=== PATIENT | female | born 1970 | race African-American/Black ===

== ENCOUNTER 2018-04-13 10:20 | Emergency (ER) | payer SELFPAY ==
[~2018-04-13] VITALS: Ht 180.3 cm; Wt 115.2 kg
[2018-04-13 10:40] VITALS: BP 115/84
[2018-04-13] MEDS ORDERED: PENI500T PO (10:43)
--- NOTE | 2018-04-13 17:15 | ED.ADGEN ---
Past History Past Medical History: No Pertinent History Past Surgical History: No Surgical History Alcohol Use: Heavy Drug Use: None Adult General Chief Complaint Chief Complaint Right posterior lower dental pain HPI HPI Patient is a 47-year-old Afro-[place] female presents with right posterior lower molar pain. Reports pain for the past 2-3 days and Reactive CONSUMPTION secondary to pain. Patient has not contacted a dentist or been evaluated locally for her current complaint. No trismus, hoarseness, dysphonia or dysphagia. No chest pain shortness of breath. No facial swelling. No other acute symptoms or complaints. [] Review of Systems Review of Systems Review symptoms as per history of present illness. All other systems were reviewed and found to be within normal limits, except as documented in this note. Allergies Allergies Allergies Coded Allergies Type Severity Reaction Last Updated Verified No Known Drug Allergies 04/13/18 No Physical Exam Physical Exam Constitutional: Well developed, well nourished, no acute distress, non-toxic appearance. [] HENT: Normocephalic, atraumatic, bilateral external ears normal, oropharynx moist, right lower posterior mandible tooth erosion, no gingival or facial swelling. No dysphonia, dysphagia. [] Eyes: PERRLA, EOMI, conjunctiva normal. [] Psychologic: Affect normal, judgement normal, mood normal. [] Current Patient Data Vital Signs Vital Signs Date Time Temp Pulse Resp B/P (MAP) Pulse Ox O2 Delivery O2 Flow Rate FiO2 04/13/18 10:40 98.1 100 20 96 Room Air EKG EKG [] Radiology/Procedures Radiology/Procedures [] Course & Med Decision Making Course & Med Decision Making Pertinent Labs and Imaging studies reviewed. (See chart for details) [ declined pain medication offered here in the emergency department. She left prior to receiving her antibiotic prescription and dental referral list. Suspect drug-seeking behavior.] Final Impression Final Impression [#1 dental pain #2 drug seeking behavior] Dragon Disclaimer Dragon Disclaimer This electronic medical record was generated, in whole or in part, using a voice recognition dictation system. FABIAN SELBY DO Apr 13, 2018 17:15
== END 2018-04-13 11:04 | disposition home or self-care (01) ==
LOC: ER 10:20
DX: K08.89 Other specified disorders of teeth and supporting structures (principal); Z76.5 Malingerer [conscious simulation]; F10.20 Alcohol dependence, uncomplicated; Y90.9 Presence of alcohol in blood, level not specified
CPT/HCPCS: 99283

== ENCOUNTER 2018-07-26 02:13 | Emergency (ER) | payer SELFPAY ==
[~2018-07-26] VITALS: Ht 180.3 cm; Wt 104.3 kg
[~2018-07-26 02:13] MED LIST: PENI500T PO
--- NOTE | 2018-07-26 02:20 | ED.ADGEN ---
Past History Past Medical History: No Pertinent History, Alcoholism, Constipation, Ovarian Cyst, Other Past Surgical History: No Surgical History Alcohol Use: Heavy Drug Use: None Adult General Chief Complaint Chief Complaint ".. I was out [employer].. in [place] about 2 weeks ago they did a bone cyst on October I get a CT and they said I had an ovarian cyst or mass... They sent me to follow up at [facility] here in [place]...but they want $150 dollars... I went to ED.. and they did not know what they are doing...I am really from [facility]...and pablo have moved up here....but pain to bad tonight...and was not going to go back to that [facility] place..."... " I know what the problem is ... it the ovaries.. cysts... I ve had it for years..." HPI HPI Patient is a 47 year old female who presents with above hx and complaints of right flank and lower abdomen pain. Patient's pain is been there for months, and previous diagnosis of ovarian cysts or mass 2 weeks ago and sat [facility]. Patient did eat a large meal approximate 4 hours ago. Patient does admit to chronic alcohol use. Patient did have a normal stool today. Patient pain is currently 8 out of 10 and nothing seems to make it better. Patient denies any history of immunosuppression. Patient denies any history of specific ill contacts. Patient denies history of STDs. Patient with history of somewhat limited. Patient does admit to drinking alcohol tonight. Patient denies any drug use other than alcohol. Patient advised she still has periods. Patient does not remember her last period. Patient denies any vaginal discharge. Patient denies history of STDs. Patient denies any trauma. Review of Systems Review of Systems Constitutional: Denies fever or chills [] Eyes: Denies change in visual acuity, redness, or eye pain [] HENT: Denies nasal congestion or sore throat [] Respiratory: Denies cough or shortness of breath [] Cardiovascular: No additional information not addressed in HPI [] GI: Complaints of months of abdominal pain and constipation, No current, nausea, vomiting, bloody stools or diarrhea [] : Denies dysuria or hematuria [] Musculoskeletal: Denies back pain or joint pain [] Integument: Denies rash or skin lesions [] Neurologic: Denies headache, focal weakness or sensory changes [] Endocrine: Denies polyuria or polydipsia [] All other systems were reviewed and found to be within normal limits, except as documented in this note. Family History Family History Noncontributory Current Medications Current Medications Current Medications Medications (Trade) Dose Ordered Sig/Yonatan Start Time Stop Time Status Last Admin Dose Admin Ketorolac Tromethamine (Toradol 30mg Vial) 30 mg 1X ONCE 07/26/18 06:00 07/26/18 06:01 DC 07/26/18 05:55 30 MG Lactated Ringer's 1,000 ml @ 1,000 mls/hr Q1H 07/26/18 03:00 07/26/18 03:59 DC 07/26/18 02:56 1,000 MLS/HR Magnesium Hydroxide (Milk Of Magnesia) 2,400 mg 1X ONCE 07/26/18 06:00 07/26/18 06:01 DC 07/26/18 05:54 2,400 MG Ondansetron HCl (Zofran) 8 mg 1X ONCE 07/26/18 03:00 07/26/18 03:01 DC 07/26/18 02:57 8 MG Allergies Allergies Allergies Coded Allergies Type Severity Reaction Last Updated Verified No Known Drug Allergies 04/13/18 No Physical Exam Physical Exam Constitutional: Mild to moderate distress, intoxicated appearance. [] HENT: Normocephalic, atraumatic, bilateral external ears normal, oropharynx moist, no oral exudates, nose normal. [] Eyes: PERRLA, EOMI, conjunctiva normal, no discharge. [] Neck: Normal range of motion, no tenderness, supple, no stridor. [] Cardiovascular:Heart rate regular rhythm, no murmur [] Lungs & Thorax: Bilateral breath sounds clear to auscultation [] Abdomen: Bowel sounds normal, soft, mild generalized tenderness, no masses, no pulsatile masses. Distended. Patient declines rectal exam at this time. Patient declines pelvic exam this time. No true rebound. Obese. Skin: Warm, dry, no erythema, no rash. [] Back: No tenderness, no CVA tenderness. [] Extremities: No tenderness, no cyanosis, no clubbing, ROM intact, bilateral ankle edema. [] No psoas sign. Patient ambulatory without problems Neurologic: Alert and oriented X 3, normal motor function, normal sensory function, no focal deficits noted. [] Psychologic: Affect flat, judgement normal, mood normal. [] Current Patient Data Vital Signs Vital Signs Date Time Temp Pulse Resp B/P (MAP) Pulse Ox O2 Delivery O2 Flow Rate FiO2 07/26/18 05:55 96 17 113/75 (88) 93 Room Air 07/26/18 02:25 98.2 Lab Results Laboratory Tests Test 07/26/18 02:42 07/26/18 02:55 Urine Collection Type Unknown Urine Color Yellow Urine Clarity Clear Urine pH 5.0 Urine Specific Farley <=1.005 Urine Protein Neg (NEG-TRACE) Urine Glucose (UA) Neg mg/dL (NEG) Urine Ketones (Stick) Neg mg/dL (NEG) Urine Blood Mod (NEG) Urine Nitrite Neg (NEG) Urine Bilirubin Neg (NEG) Urine Urobilinogen Dipstick 0.2 mg/dL (0.2 mg/dL) Urine Leukocyte Esterase Neg (NEG) Urine RBC Occ /HPF (0-2) Urine WBC 0 /HPF (0-4) Urine Squamous Epithelial Cells Occ /LPF Urine Bacteria 0 /HPF (0-FEW) Urine Test Negative (NEG) Urine Opiates Screen Neg (NEG) Urine Methadone Screen Neg (NEG) Urine Barbiturates Neg (NEG) Urine Phencyclidine Screen Neg (NEG) Urine Amphetamine/Methamphetamine Neg (NEG) Urine Benzodiazepines Screen Neg (NEG) Urine Cocaine Screen Neg (NEG) Urine Cannabinoids Screen Neg (NEG) Urine Ethyl Alcohol Pos (NEG) White Blood Count 5.4 x10^3/uL (4.0-11.0) Red Blood Count 4.22 x10^6/uL (3.50-5.40) Hemoglobin 14.3 g/dL (12.0-15.5) Hematocrit 41.1 % (36.0-47.0) Mean Corpuscular Volume 98 fL (79-100) Mean Corpuscular Hemoglobin 34 pg (25-35) Mean Corpuscular Hemoglobin Concent 35 g/dL (31-37) Red Cell Distribution Width 13.4 % (11.5-14.5) Platelet Count 260 x10^3/uL (140-400) Neutrophils (%) (Auto) 25 % (31-73) L Lymphocytes (%) (Auto) 56 % (24-48) H Monocytes (%) (Auto) 13 % (0-9) H Eosinophils (%) (Auto) 2 % (0-3) Basophils (%) (Auto) 3 % (0-3) Neutrophils # (Auto) 1.4 x10^3uL (1.8-7.7) L Lymphocytes # (Auto) 3.0 x10^3/uL (1.0-4.8) Monocytes # (Auto) 0.7 x10^3/uL (0.0-1.1) Eosinophils # (Auto) 0.1 x10^3/uL (0.0-0.7) Basophils # (Auto) 0.2 x10^3/uL (0.0-0.2) Prothrombin Time 9.3 SEC (9.4-11.4) L Prothrombin Time INR 0.9 (0.9-1.1) PTT 24 SEC (23-33) Sodium Level 135 mmol/L (136-145) L Potassium Level 3.9 mmol/L (3.5-5.1) Chloride Level 102 mmol/L (98-107) Carbon Dioxide Level 22 mmol/L (21-32) Anion Gap 11 (6-14) Blood Urea Nitrogen 10 mg/dL (7-20) Creatinine 0.7 mg/dL (0.6-1.0) Estimated GFR (Cockcroft-Gault) 109.5 Glucose Level 142 mg/dL (70-99) H Calcium Level 8.8 mg/dL (8.5-10.1) Total Bilirubin 0.1 mg/dL (0.2-1.0) L Direct Bilirubin 0.1 mg/dL (0.0-0.2) Aspartate Amino Transferase (AST) 89 U/L (15-37) H Alanine Aminotransferase (ALT) 106 U/L (14-59) H Alkaline Phosphatase 114 U/L (46-116) Total Protein 8.3 g/dL (6.4-8.2) H Albumin 3.7 g/dL (3.4-5.0) Amylase Level 75 U/L (25-115) Lipase 203 U/L (73-393) Ethyl Alcohol Level 352 mg/dL (0-10) H EKG EKG [] Radiology/Procedures Radiology/Procedures My interpretation of acute abdomen film shows no acute cardiopulmonary findings. No free air in the diaphragm. Does have markedly increased stool burden consistent with constipation. Patient currently refusing CT evaluation of abdomen[] Course & Med Decision Making Course & Med Decision Making Pertinent Labs and Imaging studies reviewed. (See chart for details) Re- exam at 0545. No focal abdomen pain. Distended. No true rebound. Pt report marked improvement of pain. Requesting Discharge. Patient rates her pain at the current time -07/31 Discussed with pt. must stay on clear fluid diet x 24-48 hrs. Push fluids. Stop excessive use of Alcohol. Keep follow up with [facility]. Pt. insistent she does not want CT scan at this time. Pt.is aware of missed diagnosis, appendicitis, abscess ect. Must see [facility] as previously directed. [] Final Impression Final Impression 1. Abdomen Pain[]- Generalize 2. Hx of Complex Rt. Ovarian Cyst 3. Alcohol Abuse- ETOH 352 4. Mild Elevation AST 89/ALT 106 5. Constipation Dragon Disclaimer Dragon Disclaimer This electronic medical record was generated, in whole or in part, using a voice recognition dictation system. Dragon Disclaimer This chart was dictated in whole or in part using Voice Recognition software in a busy, high-work load, and often noisy Emergency Department environment. It may contain unintended and wholly unrecognized errors or omissions. Dragon Disclaimer This chart was dictated in whole or in part using Voice Recognition software in a busy, high-work load, and often noisy Emergency Department environment. It may contain unintended and wholly unrecognized errors or omissions. Discharge Summary Visit Information Final Diagnosis Problems Medical Problems: (1) Abdominal pain Status: Acute Brief Hospital Course Allergies Allergies Coded Allergies Type Severity Reaction Last Updated Verified No Known Drug Allergies 04/13/18 No Vital Signs Vital Signs Date Time Temp Pulse Resp B/P (MAP) Pulse Ox O2 Delivery O2 Flow Rate FiO2 07/26/18 05:55 96 17 113/75 (88) 93 Room Air 07/26/18 02:25 98.2 Lab Results Laboratory Tests Test 07/26/18 02:42 07/26/18 02:55 Urine Collection Type Unknown Urine Color Yellow Urine Clarity Clear Urine pH 5.0 Urine Specific Farley <=1.005 Urine Protein Neg (NEG-TRACE) Urine Glucose (UA) Neg mg/dL (NEG) Urine Ketones (Stick) Neg mg/dL (NEG) Urine Blood Mod (NEG) Urine Nitrite Neg (NEG) Urine Bilirubin Neg (NEG) Urine Urobilinogen Dipstick 0.2 mg/dL (0.2 mg/dL) Urine Leukocyte Esterase Neg (NEG) Urine RBC Occ /HPF (0-2) Urine WBC 0 /HPF (0-4) Urine Squamous Epithelial Cells Occ /LPF Urine Bacteria 0 /HPF (0-FEW) Urine Test Negative (NEG) Urine Opiates Screen Neg (NEG) Urine Methadone Screen Neg (NEG) Urine Barbiturates Neg (NEG) Urine Phencyclidine Screen Neg (NEG) Urine Amphetamine/Methamphetamine Neg (NEG) Urine Benzodiazepines Screen Neg (NEG) Urine Cocaine Screen Neg (NEG) Urine Cannabinoids Screen Neg (NEG) Urine Ethyl Alcohol Pos (NEG) White Blood Count 5.4 x10^3/uL (4.0-11.0) Red Blood Count 4.22 x10^6/uL (3.50-5.40) Hemoglobin 14.3 g/dL (12.0-15.5) Hematocrit 41.1 % (36.0-47.0) Mean Corpuscular Volume 98 fL (79-100) Mean Corpuscular Hemoglobin 34 pg (25-35) Mean Corpuscular Hemoglobin Concent 35 g/dL (31-37) Red Cell Distribution Width 13.4 % (11.5-14.5) Platelet Count 260 x10^3/uL (140-400) Neutrophils (%) (Auto) 25 % (31-73) Lymphocytes (%) (Auto) 56 % (24-48) Monocytes (%) (Auto) 13 % (0-9) Eosinophils (%) (Auto) 2 % (0-3) Basophils (%) (Auto) 3 % (0-3) Neutrophils # (Auto) 1.4 x10^3uL (1.8-7.7) Lymphocytes # (Auto) 3.0 x10^3/uL (1.0-4.8) Monocytes # (Auto) 0.7 x10^3/uL (0.0-1.1) Eosinophils # (Auto) 0.1 x10^3/uL (0.0-0.7) Basophils # (Auto) 0.2 x10^3/uL (0.0-0.2) Prothrombin Time 9.3 SEC (9.4-11.4) Prothromb Time International Ratio 0.9 (0.9-1.1) Activated Partial Thromboplast Time 24 SEC (23-33) Sodium Level 135 mmol/L (136-145) Potassium Level 3.9 mmol/L (3.5-5.1) Chloride Level 102 mmol/L (98-107) Carbon Dioxide Level 22 mmol/L (21-32) Anion Gap 11 (6-14) Blood Urea Nitrogen 10 mg/dL (7-20) Creatinine 0.7 mg/dL (0.6-1.0) Estimated GFR (Cockcroft-Gault) 109.5 Glucose Level 142 mg/dL (70-99) Calcium Level 8.8 mg/dL (8.5-10.1) Total Bilirubin 0.1 mg/dL (0.2-1.0) Direct Bilirubin 0.1 mg/dL (0.0-0.2) Aspartate Amino Transf (AST/SGOT) 89 U/L (15-37) Alanine Aminotransferase (ALT/SGPT) 106 U/L (14-59) Alkaline Phosphatase 114 U/L (46-116) Total Protein 8.3 g/dL (6.4-8.2) Albumin 3.7 g/dL (3.4-5.0) Amylase Level 75 U/L (25-115) Lipase 203 U/L (73-393) Ethyl Alcohol Level 352 mg/dL (0-10) Brief Hospital Course Ms. Bronson is a 47 old female who presented with generalized abdomen pain. Pt has complaints of constipation. Patient has complaints of previous diagnosis complex ovarian cyst.. Did not keep scheduled follow-up at [facility]. Pt. discomfort had resolved almost completely by time of discharge. Patient declined further evaluation with CT at this time. Patient discharge home on a clear fluid diet. Begged patient to keep follow-up. Encouraged to avoid alcohol abuse. Discharge Information Condition at Discharge: Improved, Stable Disposition/Orders: D/C to Home Dischare Medications Current Medications Lactated Ringer's 1,000 ml @ 1,000 mls/hr Q1H IV Last administered on at 02:56; Admin Dose 1,000 MLS/HR; Start 07/26/18 at 03:00; Stop 07/26/18 at 03: 59; Status DC Ondansetron HCl (Zofran) 8 mg 1X ONCE IV Last administered on 07/26/18at 02:57; Admin Dose 8 MG; Start 07/26/18 at 03:00; Stop 07/26/18 at 03:01; Status DC Magnesium Hydroxide (Milk Of Magnesia) 2,400 mg 1X ONCE PO Last administered on 07/26/18at 05:54; Admin Dose 2,400 MG; Start 07/26/18 at 06:00; Stop 07/26/18 at 06:01; Status DC Ketorolac Tromethamine (Toradol 30mg Vial) 30 mg 1X ONCE IV Last administered on 07/26/18at 05:55; Admin Dose 30 MG; Start 07/26/18 at 06:00; Stop 07/26/18 at 06: 01; Status DC Active Scripts Active Penicillin V Potassium 500 Mg Tablet 1 Tab PO QID Discharge Summary Visit Information Final Diagnosis Problems Medical Problems: (1) Abdominal pain Status: Acute Brief Hospital Course Allergies Allergies Coded Allergies Type Severity Reaction Last Updated Verified No Known Drug Allergies 04/13/18 No Vital Signs Vital Signs Date Time Temp Pulse Resp B/P (MAP) Pulse Ox O2 Delivery O2 Flow Rate FiO2 07/26/18 05:55 96 17 113/75 (88) 93 Room Air 07/26/18 02:25 98.2 Lab Results Laboratory Tests Test 07/26/18 02:42 07/26/18 02:55 Urine Collection Type Unknown Urine Color Yellow Urine Clarity Clear Urine pH 5.0 Urine Specific Farley <=1.005 Urine Protein Neg (NEG-TRACE) Urine Glucose (UA) Neg mg/dL (NEG) Urine Ketones (Stick) Neg mg/dL (NEG) Urine Blood Mod (NEG) Urine Nitrite Neg (NEG) Urine Bilirubin Neg (NEG) Urine Urobilinogen Dipstick 0.2 mg/dL (0.2 mg/dL) Urine Leukocyte Esterase Neg (NEG) Urine RBC Occ /HPF (0-2) Urine WBC 0 /HPF (0-4) Urine Squamous Epithelial Cells Occ /LPF Urine Bacteria 0 /HPF (0-FEW) Urine Test Negative (NEG) Urine Opiates Screen Neg (NEG) Urine Methadone Screen Neg (NEG) Urine Barbiturates Neg (NEG) Urine Phencyclidine Screen Neg (NEG) Urine Amphetamine/Methamphetamine Neg (NEG) Urine Benzodiazepines Screen Neg (NEG) Urine Cocaine Screen Neg (NEG) Urine Cannabinoids Screen Neg (NEG) Urine Ethyl Alcohol Pos (NEG) White Blood Count 5.4 x10^3/uL (4.0-11.0) Red Blood Count 4.22 x10^6/uL (3.50-5.40) Hemoglobin 14.3 g/dL (12.0-15.5) Hematocrit 41.1 % (36.0-47.0) Mean Corpuscular Volume 98 fL (79-100) Mean Corpuscular Hemoglobin 34 pg (25-35) Mean Corpuscular Hemoglobin Concent 35 g/dL (31-37) Red Cell Distribution Width 13.4 % (11.5-14.5) Platelet Count 260 x10^3/uL (140-400) Neutrophils (%) (Auto) 25 % (31-73) Lymphocytes (%) (Auto) 56 % (24-48) Monocytes (%) (Auto) 13 % (0-9) Eosinophils (%) (Auto) 2 % (0-3) Basophils (%) (Auto) 3 % (0-3) Neutrophils # (Auto) 1.4 x10^3uL (1.8-7.7) Lymphocytes # (Auto) 3.0 x10^3/uL (1.0-4.8) Monocytes # (Auto) 0.7 x10^3/uL (0.0-1.1) Eosinophils # (Auto) 0.1 x10^3/uL (0.0-0.7) Basophils # (Auto) 0.2 x10^3/uL (0.0-0.2) Prothrombin Time 9.3 SEC (9.4-11.4) Prothromb Time International Ratio 0.9 (0.9-1.1) Activated Partial Thromboplast Time 24 SEC (23-33) Sodium Level 135 mmol/L (136-145) Potassium Level 3.9 mmol/L (3.5-5.1) Chloride Level 102 mmol/L (98-107) Carbon Dioxide Level 22 mmol/L (21-32) Anion Gap 11 (6-14) Blood Urea Nitrogen 10 mg/dL (7-20) Creatinine 0.7 mg/dL (0.6-1.0) Estimated GFR (Cockcroft-Gault) 109.5 Glucose Level 142 mg/dL (70-99) Calcium Level 8.8 mg/dL (8.5-10.1) Total Bilirubin 0.1 mg/dL (0.2-1.0) Direct Bilirubin 0.1 mg/dL (0.0-0.2) Aspartate Amino Transf (AST/SGOT) 89 U/L (15-37) Alanine Aminotransferase (ALT/SGPT) 106 U/L (14-59) Alkaline Phosphatase 114 U/L (46-116) Total Protein 8.3 g/dL (6.4-8.2) Albumin 3.7 g/dL (3.4-5.0) Amylase Level 75 U/L (25-115) Lipase 203 U/L (73-393) Ethyl Alcohol Level 352 mg/dL (0-10) Brief Hospital Course Ms. Bronson is a 47 old [sex] who presented with [ ] Discharge Information Dischare Medications Current Medications Lactated Ringer's 1,000 ml @ 1,000 mls/hr Q1H IV Last administered on at 02:56; Admin Dose 1,000 MLS/HR; Start 07/26/18 at 03:00; Stop 07/26/18 at 03: 59; Status DC Ondansetron HCl (Zofran) 8 mg 1X ONCE IV Last administered on 07/26/18at 02:57; Admin Dose 8 MG; Start 07/26/18 at 03:00; Stop 07/26/18 at 03:01; Status DC Magnesium Hydroxide (Milk Of Magnesia) 2,400 mg 1X ONCE PO Last administered on 07/26/18at 05:54; Admin Dose 2,400 MG; Start 07/26/18 at 06:00; Stop 07/26/18 at 06:01; Status DC Ketorolac Tromethamine (Toradol 30mg Vial) 30 mg 1X ONCE IV Last administered on 07/26/18at 05:55; Admin Dose 30 MG; Start 07/26/18 at 06:00; Stop 07/26/18 at 06: 01; Status DC Active Scripts Active Penicillin V Potassium 500 Mg Tablet 1 Tab PO QID CHAY SOLITARIO MD Jul 26, 2018 02:20
[2018-07-26] MEDS ORDERED: ONDANSETRON PF 4 MG/2 ML VIAL. IV ONE (03:00)
[2018-07-26] MEDS ORDERED: IV RINGERS SOLUTION,LACTATED 1,000 ML IV SCH (03:00)
[2018-07-26 03:17] LABS: BASO # 0.2 x10^3/uL (0.0-0.2); BASO % 3 % (0-3); EOS # 0.1 x10^3/uL (0.0-0.7); EOS % 2 % (0-3); HEMATOCRIT 41.1 % (36.0-47.0); HEMOGLOBIN 14.3 g/dL (12.0-15.5); LYMPH % 56 % (24-48); MEAN CORPUSCULAR HEMOGLOBIN 34 pg (25-35); MEAN CORPUSCULAR HGB CONC 35 g/dL (31-37); MEAN CORPUSCULAR VOLUME 98 fL (79-100); MONO # 0.7 x10^3/uL (0.0-1.1); MONO % 13 % (0-9); NEUT # 1.4 x10^3uL (1.8-7.7); NEUT % 25 % (31-73); PLATELET COUNT 260 x10^3/uL (140-400); RED BLOOD COUNT 4.22 x10^6/uL (3.50-5.40); RED CELL DISTRIBUTION WIDTH 13.4 % (11.5-14.5); WHITE BLOOD COUNT 5.4 x10^3/uL (4.0-11.0)
[2018-07-26 03:27] LABS: BILIRUBIN,URINE NEG (NEG); CLARITY,URINE CLEAR; COLOR,URINE YELLOW; GLUCOSE,URINE NEG (NEG); U PREG PATIENT NEGATIVE (NEG)
[2018-07-26 03:28] LABS: BACTERIA,URINE 0 /HPF (0-FEW); NITRITE,URINE NEG (NEG); RBC,URINE OCC /HPF (0-2); SQUAMOUS EPITHELIAL CELL,UR OCC /LPF; UROBILINOGEN,URINE 0.2 mg/dL (0.2 mg/dL); WBC,URINE 0 /HPF (0-4)
[2018-07-26 03:42] LABS: ALBUMIN 3.7 g/dL (3.4-5.0); CALCIUM 8.8 mg/dL (8.5-10.1); CREATININE 0.7 mg/dL (0.6-1.0); DIRECT BILIRUBIN 0.1 mg/dL (0.0-0.2); GFR 109.5; TOTAL BILIRUBIN 0.1 mg/dL (0.2-1.0); TOTAL PROTEIN 8.3 g/dL (6.4-8.2)
[2018-07-26 03:42] LABS: BARBITURATES NEG (NEG); BENZODIAZEPINES NEG (NEG); CANNABINOIDS NEG (NEG); COCAINE NEG (NEG); METHADONE NEG (NEG); OPIATES NEG (NEG); PHENCYCLIDINE NEG (NEG)
[2018-07-26 03:44] LABS: AMPHETAMINE/METHAMPHETAMINE NEG (NEG)
[2018-07-26 03:44] LABS: POTASSIUM 3.9 mmol/L (3.5-5.1)
[2018-07-26 05:55] VITALS: BP 113/75
[2018-07-26] MEDS ORDERED: MAGNESIUM HYDROXIDE 2,400 MG/30 ML ORAL.SUSP. PO ONE (06:00)
[2018-07-26] MEDS ORDERED: KETOROLAC 30 MG/ML VIAL. IV ONE (06:00)
--- NOTE | 2018-07-26 08:28 | RAD ---
Indication:Chest and abdomen pain with spasms TECHNIQUE:PA chest and 2 views of the abdomen and pelvis COMPARISON: None FINDINGS: Heart is normal in size. Central bilateral peribronchial wall thickening is seen which may be secondary to pulmonary vascular congestion or bronchitis. No focal consolidation. No pneumothorax or pleural effusion. Visualized bony thorax is within normal limits. No pneumoperitoneum. No abnormally dilated bowel loops or air-fluid levels. No abnormal calcifications projecting over the kidneys to suggest apparent renal stones. Multiple phleboliths are seen in the pelvis. Visualized bones are within normal limits. IMPRESSION: 1. Mild prominence of bronchovascular markings may be secondary to pulmonary vascular congestion or bronchitis. No acute findings in the abdomen or pelvis. Electronically signed by: Shayan Hicks DO (07/26/2018 8:24 AM) [id number]
== END 2018-07-26 06:11 | disposition home or self-care (01) ==
LOC: ER 02:13
DX: K59.00 Constipation, unspecified (principal); R10.84 Generalized abdominal pain; R74.0 Nonspecific elevation of levels of transaminase and lactic acid dehydrogenase [LDH]; F10.20 Alcohol dependence, uncomplicated; Y90.8 Blood alcohol level of 240 mg/100 ml or more
CPT/HCPCS: 36415; 74022; 80048; 80076; 80307; 81001; 81025; 82150; 83690; 85025; 85610; 85730; 96374; 96375; 99284; G0480; J1885; J2405; J7120

== ENCOUNTER → 2018-08-31 | Outpatient (CLI) | payer OTHER ==
--- NOTE | 2018-08-31 15:58 | RAD ---
DATE: 08/31/2018 EXAM: DIGITAL SCREEN BILAT W/CAD HISTORY: Routine screening COMPARISON: None available This study was interpreted with the benefit of Computerized Aided Detection (CAD). Breast Density: SCATTERED The breast parenchyma shows scattered fibroglandular densities. Breast parenchyma level B. FINDINGS: The fibroglandular pattern is heterogeneous and nodular in character. The breasts are mildly asymmetric with increased density anteriorly in the left breast compared to the right. This is likely related to the history of previous left breast surgery. No discrete breast mass is evident. Scattered benign type calcifications are present. No suspicious microcalcifications are delineated. IMPRESSION: Mild breast asymmetry likely related to the history of previous left breast surgery. In the absence of previous mammograms to confirm stability, left breast ultrasound and probably accelerated left mammographic surveillance is suggested. BI-RADS CATEGORY: 0 INCOMPLETE: NEEDS ADDITIONAL IMAGING EVALUATION AND/OR PRIOR MAMMOGRAMS FOR COMPARISON. RECOMMENDED FOLLOW-UP: ADD ADDITIONAL IMAGING PQRS compliance statement: Patient information was entered into a reminder system with a target due date for the next mammogram. Mammography is a sensitive method for finding small breast cancers, but it does not detect them all and is not a substitute for careful clinical examination. A negative mammogram does not negate a clinically suspicious finding and should not result in delay in biopsying a clinically suspicious abnormality. "Our facility is accredited by the [employer] Mammography Program."
== END | disposition home or self-care (01) ==
LOC: MAMMO 15:02
PROVIDERS: ATTEND Nurse Practitioner Family
DX: Z12.31 Encounter for screening mammogram for malignant neoplasm of breast (principal)
CPT/HCPCS: 77067